=== PATIENT | female | born 1975 | race Hispanic/Latino ===

== ENCOUNTER 2018-10-02 00:47 | Emergency (ER) | payer MEDICAID, OTHER ==
[2018-10-02 01:36] LABS: APPEARANCE,URINE Cloudy (CLEAR); BILIRUBIN,URINE Negative (NEGATIVE); COLOR,URINE Yellow (YELLOW); GLUCOSE, URINE (UA) Negative (NEGATIVE); KETONES,URINE Negative (NEGATIVE); LEUKOCYTE ESTERASE ,URINE Negative (NEGATIVE); NITRATE,URINE Negative (NEGATIVE); OCCULT BLOOD,URINE Negative (NEGATIVE); PH,URINE 5.5 (5.0-8.0); PROTEIN,URINE Negative (NEGATIVE); UROBILINOGEN,URINE 0.2 mg/dL (0.2-1.0)
[2018-10-02] MEDS ORDERED: METOCLOPRAMIDE 10 MG/2 ML VIAL ONE (01:42)
[2018-10-02] MEDS ORDERED: FAMOTIDINE/PF 20 MG/2 ML VIAL IV ONE (01:42)
[2018-10-02] MEDS ORDERED: ONDANSETRON HCL 4 MG/2 ML VIAL ONE (01:42)
[2018-10-02] MEDS ORDERED: SODIUM CHLORIDE 0.9% 1000ML 1,000 ML IV ONE (01:43)
[2018-10-02 01:47] LABS: BASOPHILS % (AUTO) 1.7 % (0.0-5.0); EOSINOPHILS % (AUTO) 1.7 % (0.0-8.0); HEMATOCRIT 34.9 % (36-48); LYMPHOCYTES % (AUTO) 8.7 % (21.0-51.0); MEAN CORPUSCULAR HGB CONC 31.9 g/dL (32.0-36.0); MEAN CORPUSCULAR VOLUME 75.1 fL (79-99); MONOCYTES % (AUTO) 3.6 % (3.0-13.0); NEUTROPHILS % (AUTO) 84.3 % (40.0-77.0); PLATELET COUNT (AUTO) 178 K/uL (130-400); RED BLOOD CELL COUNT(AUTO) 4.65 MIL/uL (4.00-5.50); RED CELL DISTRIBUTION WIDTH 20.2 % (11.0-15.5); WHITE BLOOD COUNT (AUTO) 10.5 K/uL (4.8-10.8)
[2018-10-02 01:55] LABS: CREATININE 0.7 mg/dL (0.5-1.5); POTASSIUM 3.6 mmol/L (3.5-5.1)
[2018-10-02 01:57] LABS: INR 0.9 (0.85-1.15); PROTHROMBIN TIME 9.5 SEC (9.6-11.6)
[2018-10-02 01:59] LABS: ALBUMIN 3.5 g/dL (3.5-5.0); BILIRUBIN,TOTAL 0.3 mg/dL (0.2-1.0); TOTAL PROTEIN, SERUM 7.1 g/dL (6.0-8.3)
[2018-10-02] MEDS ORDERED: IOHEXOL-350 75 ML VIAL IV ONE (02:24)
== END 2018-10-02 05:13 | disposition home or self-care (01) ==
LOC: EDH 00:47
DX: R10.13 Epigastric pain (principal); R10.12 Left upper quadrant pain; Z79.899 Other long term (current) drug therapy; Z98.890 Other specified postprocedural states
CPT/HCPCS: 36415; 74177; 80053; 81003; 82550; 83605; 83690; 84484; 85025; 85610; 85730; 93005; 96374; 96375; 99285; J2405; J2765; J3490; J7030; Q9967

== ENCOUNTER → 2021-06-21 | Outpatient (CLI) | payer OTHER | END | disposition home or self-care (01) | LOC: SHCH 07:44 | PROVIDERS: ATTEND Internal Medicine Cardiovascular Disease | DX: I11.9 Hypertensive heart disease without heart failure (principal); I35.8 Other nonrheumatic aortic valve disorders; E11.9 Type 2 diabetes mellitus without complications | CPT/HCPCS: 93306 ==

== ENCOUNTER → 2021-11-05 | Outpatient (CLI) | payer OTHER | END | disposition home or self-care (01) | LOC: RAH 09:37 | PROVIDERS: ATTEND Family Medicine | DX: Z12.31 Encounter for screening mammogram for malignant neoplasm of breast (principal) | CPT/HCPCS: 77067 ==

== ENCOUNTER → 2022-12-18 | Outpatient (CLI) | payer OTHER | END | disposition home or self-care (01) | LOC: RAH 11:16 | PROVIDERS: ATTEND Family Medicine | DX: Z12.31 Encounter for screening mammogram for malignant neoplasm of breast (principal) | CPT/HCPCS: 77067 ==

== ENCOUNTER 2023-01-07 00:16 | Emergency (ER) | payer OTHER ==
[~2023-01-07] VITALS: Ht 157.5 cm; Wt 113.4 kg
[2023-01-07 01:04] LABS: BASOPHILS # (AUTO) 0.05 K/uL (0.00-0.20); BASOPHILS % (AUTO) 0.5 % (0.0-5.0); EOSINOPHILS # (AUTO) 0.29 K/uL (0.00-0.70); EOSINOPHILS % (AUTO) 3.1 % (0.0-8.0); HEMATOCRIT 26.5 % (36-48); IMMATURE GRANULOCYTE ABSOLUTE 0.15 K/uL (0-1); LYMPHOCYTES # (AUTO) 1.9 K/uL (1.0-4.8); LYMPHOCYTES % (AUTO) 20.4 % (21.0-51.0); MEAN CORPUSCULAR HEMOGLOBIN 20.1 pg (27.0-33.0); MEAN CORPUSCULAR HGB CONC 29.4 g/dL (32.0-36.0); MEAN CORPUSCULAR VOLUME 68.3 fL (79-99); MONOCYTES # (AUTO) 0.5 K/uL (0.1-1.0); MONOCYTES % (AUTO) 5.7 % (3.0-13.0); NEUTROPHILS # (AUTO) 6.5 K/uL (1.8-7.7); NEUTROPHILS % (AUTO) 68.7 % (40.0-77.0); PLATELET COUNT (AUTO) 243 K/uL (130-400); RED BLOOD CELL COUNT(AUTO) 3.88 MIL/uL (4.00-5.50); RED CELL DISTRIBUTION WIDTH 18.7 % (11.0-15.5); WHITE BLOOD COUNT (AUTO) 9.5 K/uL (4.8-10.8)
[2023-01-07 01:26] LABS: INR < 0.93 (0.85-1.15)
[2023-01-07 01:27] LABS: CREATININE 0.6 mg/dL (0.5-1.5); PARTIAL THROMBOPLASTIN TIME 24.7 SEC (26.3-35.5); POTASSIUM 4.5 mmol/L (3.5-5.1)
[2023-01-07 01:32] LABS: ALBUMIN 3.4 g/dL (3.5-5.0); BILIRUBIN,TOTAL 0.2 mg/dL (0.2-1.0); TOTAL PROTEIN, SERUM 7.1 g/dL (6.0-8.3)
[2023-01-07] MEDS ORDERED: 0.9%NACL 1000ML 2,000 ML IV ONE (02:00)
[2023-01-07] MEDS ORDERED: 0.9%NACL 1000ML 1,000 ML IV ONE (02:00)
[2023-01-07] MEDS ORDERED: IBUP-1493 PO (04:03)
[2023-01-07 04:05] VITALS: BP 126/73; PULSE 79; RESP 18; O2SAT 98
== END 2023-01-07 04:46 | disposition admitted as inpatient to this hospital (09) ==
LOC: EDH 00:16
DX: N92.0 Excessive and frequent menstruation with regular cycle (principal); D64.9 Anemia, unspecified; R42 Dizziness and giddiness; I10 Essential (primary) hypertension; Z86.018 Personal history of other benign neoplasm; Z90.49 Acquired absence of other specified parts of digestive tract
CPT/HCPCS: 99284; 96360; 76856; 80053; 85025; 85610; 85730; 86850; 86900; 86901; 36415; J7030

== ENCOUNTER → 2023-08-26 | Outpatient (CLI) | payer OTHER ==
[~2023-08-26] MED LIST: IBUP-1493 PO
[2023-08-26 12:28] LABS: CREATININE 0.8 mg/dL (0.5-1.0); POTASSIUM 4.4 mmol/L (3.5-5.1)
== END | disposition home or self-care (01) ==
LOC: LAB 09:04
PROVIDERS: ATTEND Internal Medicine Cardiovascular Disease
DX: R94.39 Abnormal result of other cardiovascular function study (principal)
CPT/HCPCS: 36415; 80048

== ENCOUNTER → 2023-10-09 | Outpatient (CLI) | payer OTHER ==
[2023-10-09 16:26] LABS: CREATININE 0.8 mg/dL (0.5-1.0); POTASSIUM 3.6 mmol/L (3.5-5.1)
== END | disposition home or self-care (01) ==
LOC: LAB 11:39
PROVIDERS: ATTEND Internal Medicine Cardiovascular Disease
DX: I10 Essential (primary) hypertension (principal)
CPT/HCPCS: 36415; 80048

== ENCOUNTER → 2024-02-27 | Outpatient (CLI) | payer OTHER ==
--- NOTE | 2024-02-27 12:49 | HMCIMG ---
SCREENING MAMMOGRAM WITH TOMOSYNTHESIS REASON: Annual exam. COMPARISON: 12/18/2022 TECHNIQUE: CC and MLO views of the bilateral breasts were performed. Tomosynthesis was performed in both projections.CAD was performed as well. FINDINGS: Parenchymal density:Parenchymal density: The breasts are heterogeneously dense, which may obscure small masses. There are no focal mass lesions. There are no pathologic appearing calcifications. There is no evidence of architectural distortion or skin thickening. IMPRESSION: Normal screening mammogram with tomosynthesis. The patient was entered into a reminder system with a target due date for their next mammogram. BI-RADS CATEGORY 1: NEGATIVE Recommend monthly self breast exam as well as annual clinical examination. A negative x-ray should not delay biopsy if a dominant or clinically suspicious mass is present, since 8-10% of cancers are not identified by mammography. Dense breasts particularly, may obscure an underlying neoplasm. Some of these may be detected clinically and therefore, clinical examination is an essential part of breast evaluation.
== END | disposition home or self-care (01) ==
LOC: RAH 11:21
PROVIDERS: ATTEND Student in an Organized Health Care Education/Training Program
DX: Z12.31 Encounter for screening mammogram for malignant neoplasm of breast (principal); R92.333 Mammographic heterogeneous density, bilateral breasts
CPT/HCPCS: 77063; 77067

== ENCOUNTER → 2024-03-26 | Outpatient (CLI) | payer OTHER ==
[2024-03-26 12:26] LABS: CREATININE 0.7 mg/dL (0.5-1.0); POTASSIUM 4.3 mmol/L (3.5-5.1)
== END | disposition home or self-care (01) ==
LOC: LAB 09:42
PROVIDERS: ATTEND Internal Medicine Cardiovascular Disease
DX: R94.39 Abnormal result of other cardiovascular function study (principal)
CPT/HCPCS: 36415; 80048

== ENCOUNTER 2024-07-17 14:04 | Emergency (ER) | payer OTHER ==
[~2024-07-17] VITALS: Ht 157.5 cm; Wt 115.7 kg
--- NOTE | 2024-07-17 14:24 | EKG ---
[facility] Test Date: 2024-07-17 Test Time: 14:20:59 Pat Name: DONALDO BRITO Department: ED Room: Gender: F [employer]: [id number] : 1975 Requested By: RUFINO MANZANO Order Number: [id number] Reading MD: Tyree Herman Measurements Intervals [place] Rate: 107 P: 35 NE: 139 QRS: 39 QRSD: 95 T: 41 QT: 330 QTc: 439 Interpretive Statements Sinus tachycardia Probable left atrial enlargement Nonspecific STT abnormality Low voltage, precordial leads Compared to ECG 10/02/2018 01:30:17 Low QRS voltage now present Sinus rhythm no longer present Electronically Signed On 07-18-2024 16:18:25 CDT by Tyree Herman Please click the below link to view image of tracing.
[2024-07-17 14:45] LABS: BASOPHILS # (AUTO) 0.03 K/uL (0.00-0.20); BASOPHILS % (AUTO) 0.4 % (0.0-5.0); EOSINOPHILS # (AUTO) 0.07 K/uL (0.00-0.70); HEMATOCRIT 33.9 % (36-48); IMMATURE GRANULOCYTE ABSOLUTE 0.09 K/uL (0-1); MEAN CORPUSCULAR HGB CONC 30.4 g/dL (32.0-36.0); MEAN CORPUSCULAR VOLUME 75.8 fL (79-99); MONOCYTES # (AUTO) 0.6 K/uL (0.1-1.0); MONOCYTES % (AUTO) 8.4 % (3.0-13.0); NEUTROPHILS # (AUTO) 5.2 K/uL (1.8-7.7); NEUTROPHILS % (AUTO) 74.9 % (40.0-77.0); PLATELET COUNT (AUTO) 193 K/uL (130-400); RED BLOOD CELL COUNT(AUTO) 4.47 MIL/uL (4.00-5.50)
[2024-07-17] MEDS: 0.9%NACL 1000ML 1,000 ML IV ONE (14:46)
[2024-07-17] MEDS: dexaMETHasone SOD PHOSPHATE 4 MG/ML 1ML VIAL IVP ONE (14:46)
[2024-07-17 14:55] LABS: CREATININE 0.7 mg/dL (0.5-1.0); POTASSIUM 3.9 mmol/L (3.5-5.1)
[2024-07-17 15:00] LABS: SARS-CoV-2, RNA, NAAT POSITIVE SARS CoV-2 (NEGATIVE)
[2024-07-17 15:07] LABS: INFLUENZA TYPE A Negative For Type A (NEGATIVE); INFLUENZA TYPE B Negative For Type B (NEGATIVE)
[2024-07-17 15:18] VITALS: BP 145/74; PULSE 96; RESP 18; TEMP 99.1; O2SAT 97
[2024-07-17] MEDS ORDERED: DEXA6TAB PO (15:18)
[2024-07-17] MEDS ORDERED: DOXY100C5 PO (15:18)
--- NOTE | 2024-07-17 15:18 | ERN ---
General Chief Complaint: Cough Stated Complaint: COUGH Time Seen by MD: 14:05 Source: patient History of Present Illness Initial Comments In his is a 49-year-old female coming in to be evaluated for cough. Patient states that she has been having cough for a couple of days. Patient was exposed to COVID by her . No fever or chills. Allergies: Coded Allergies: cephalexin (Unverified Allergy, Unknown, 07/17/24) Home Meds Active Scripts Ibuprofen (Motrin/Advil) 800 Mg Tab, 800 MG PO TID, #30 TAB Prov:BRICE BYRD MD 01/07/23 Past Medical History Past Medical History: Hypertension, Other Medical History Other: svt Past Surgical History: Hysterectomy, Other, Surgical History Other: rt wrist Family History Family History: CAD, HTN Social History Social History: Negative, Lives with family ROS Dictation CONSTITUTIONAL: No chills, no fever, no weakness, no diaphoresis, no malaise. HEAD/FACE: No signs of trauma. EENT: No eye pain, no blurred vision, no tearing, no double vision, no ear pain, no ear discharge, no nose pain, no nasal congestion, no throat pain, no throat swelling, no mouth pain. RESPIRATORY: cough, no orthopnea, no SOB, no stridor, no wheezing. CARDIOVASCULAR: No chest pain, no edema, no palpitations, no syncope. GASTROINTESTINAL/ABDOMINAL: No abdominal pain, no constipation, no diarrhea, no nausea, no vomiting. GENITOURINARY: No abnormal discharge, no dysuria, no frequent urination, no hematuria. No complaints of pain in the genitals. MUSCULOSKELETAL: No back pain, no gout, no joint pain, no joint swelling, no muscle pain, no muscle stiffness, no neck pain. INTEGUMENTARY: No change in color, no change in hair/nails, no dryness, no lesion, no lumps, no rash. NEUROLOGICAL/PSYCH: No anxiety, not depressed, no emotional problem, no headache, no numbness, no pre-existing deficit, no history of seizures, no tremors, no weakness. HEMATOLOGIC/LYMPHATIC: Not anemic, no history of blood clots, no apparent bleeding, no bruising, glands not swollen. All Systems Negative, Except as Noted. Physical Exam Physical Exam Dictation VITAL SIGNS: Reviewed. GENERAL APPEARANCE: Alert, oriented x3, no acute distress, obese. HEAD AND FACE: Non-traumatic. EYES: PERRL, pink conjunctivas, eyelid no trauma, anterior chamber clear. EARS: Pinnas intact and no signs of trauma or erythema. Ear canals clear and no discharge. TMs no erythema. NOSE: No discharge, no bleeding. OROPHARYNX: Mouth normal, teeth no caries, tongue pink. Pharynx clear, no erythema. Tonsils no exudates, no abscesses noted. Mucous membrane moist. NECK: Supple, non-tender, no thyromegaly, no masses, no JVD, no bruits. BREAST: Deferred. CHEST: No tenderness, no crepitus, no paradoxical movement, no retractions. LUNGS: Clear, well-ventilated, symmetric, no rales, no wheezing, no rhonchi, no stridor, good breath sounds bilaterally. HEART: Regular rate, regular rhythm, no murmur, no gallops. VASCULAR: No peripheral edema. ABDOMEN: Soft, positive bowel sounds, nondistended, no guarding, nontender, no rebound, no masses no hepatomegaly, no splenomegaly, no Browning's sign, no hernias. RECTAL: Deferred. GENITAL: Deferred. NEUROLOGICAL: Normal speech, gross motor function intact, gross sensory function intact. MUSCULOSKELETAL: Neck nontender, full range of motion, back nontender, full range of motion. EXTREMITIES: Nontender, full range of motion. SKIN: Color pink, dry, no turgor, no rash, no lacerations, no abrasions, no contusions. LYMPHATICS: Deferred. Results Laboratory and Microbiology Lab and Micro Result Laboratory Tests Test 07/17/24 14:32 07/17/24 14:35 White Blood Count 7.0 K/uL (4.8-10.8) Red Blood Count 4.47 MIL/uL (4.00-5.50) Hemoglobin 10.3 g/dL (12.0-16.0) L Hematocrit 33.9 % (36-48) L Mean Corpuscular Volume 75.8 fL (79-99) L Mean Corpuscular Hemoglobin 23.0 pg (27.0-33.0) L Mean Corpuscular Hemoglobin Concent 30.4 g/dL (32.0-36.0) L Red Cell Distribution Width 18.0 % (11.0-15.5) H Platelet Count 193 K/uL (130-400) Mean Platelet Volume 11.2 fL (7.5-10.5) H Immature Granulocyte % (Auto) 1.3 % (0-1) H Neutrophils (%) (Auto) 74.9 % (40.0-77.0) Lymphocytes (%) (Auto) 14.0 % (21.0-51.0) L Monocytes (%) (Auto) 8.4 % (3.0-13.0) Eosinophils (%) (Auto) 1.0 % (0.0-8.0) Basophils (%) (Auto) 0.4 % (0.0-5.0) Neutrophils # (Auto) 5.2 K/uL (1.8-7.7) Lymphocytes # (Auto) 1.0 K/uL (1.0-4.8) Monocytes # (Auto) 0.6 K/uL (0.1-1.0) Eosinophils # (Auto) 0.07 K/uL (0.00-0.70) Basophils # (Auto) 0.03 K/uL (0.00-0.20) Absolute Immature Granulocyte (auto 0.09 K/uL (0-1) Nucleated Red Blood Cells 0.0 % (0.0-0.19) Red Blood Cell Morphology See comments Sodium Level 140 mmol/L (136-145) Potassium Level 3.9 mmol/L (3.5-5.1) Chloride Level 103 mmol/L (101-111) Carbon Dioxide Level 29 mmol/L (21-32) Blood Urea Nitrogen 6 mg/dL (7-18) L Creatinine 0.7 mg/dL (0.5-1.0) Glomerular Filtration Rate Calc 106 mL/min (>90) Random Glucose 106 mg/dL (70-105) H Total Calcium 9.0 mg/dL (8.5-10.1) Troponin I High Sensitivity < 4 ng/L (4-50) L Influenza Type A Antigen Negative For Type A Influenza Type B Antigen Negative For Type B SARS-CoV-2, RNA, NAAT POSITIVE SARS CoV-2 Labs Reviewed?: Yes EKG/XRAY/US/CT/MRI EKG Comment 07/17/2024 time 2:20 p.m. Ventricular rate 107 Sinus tachycardia [place] [address] wave elevation or depression X-RAY Comment X-ray NAD MDM MDM: Differential diagnosis: COVID, URI, Rationale: Tests considered and ordered secondary to shared decision making include: Previous outside records reviewed: Old ER visits. Risk of complication and/or morbidity or mortality of patient management: None Medications-Per medication reconciliation Patient is a 49-year-old female coming in to be evaluated for Estrace . Physical exam did not disclose acute findings on lung auscultation x-ray did not disclose acute findings. Patient is a 49-year-old appropriate was hydrated with IV fluids given IV steroids aswell eros be discharged in stable condition with a diagnosis of COVID ED Course Orders Procedure Category Date Status Time Cbc With Differential LAB 07/17/24 Complete 14:07 Basic Metabolic Panel LAB 07/17/24 Complete 14:07 12 Lead Ekg Tracing- EKG 07/17/24 Complete Technical 14:07 Troponin I High LAB 07/17/24 Complete Sensitivity 14:07 Dexamethasone 4mg/Ml PHA 07/17/24 Complete 1ml Vial (Dexametha 14:30 Chest 1vw RAD 07/17/24 Taken 14:07 0.9%Nacl 1000ml (Ns PHA 07/17/24 Complete 1000ml) 14:30 Covid Rna Naat LAB 07/17/24 Complete 14:07 Influenza Type A & B, LAB 07/17/24 Complete Rapid 14:07 Current Medications Medications (Trade) Dose Ordered Sig/Dagoberto Route PRN Reason Start Time Stop Time Status Last Admin Dose Admin Dexamethasone Sodium Phosphate (dexaMETHasone 4MG/ML 1ML VIAL) 6 mg ONCE ONCE IVP 07/17/24 14:30 07/17/24 14:31 DC 07/17/24 14:46 Sodium Chloride 1,000 ml @ 0 mls/hr ONCE ONCE IV 07/17/24 14:30 07/17/24 14:31 DC 07/17/24 14:46 Vital Signs Date Time Temp Pulse Resp B/P (MAP) Pulse Ox O2 Delivery O2 Flow Rate FiO2 07/17/24 14:09 99.1 118 22 143/82 Room Air 0 07/17/24 14:07 99.1 118 22 143/82 97 Room Air* 0 21 DX & DISP Disposition: Discharge Departure Impression: Primary Impression: COVID-19 Additional Impression: Dehydration Condition: Stable Scripts Doxycycline Hyclate (Doxycycline Hyclate) 100 Mg Capsule 1 CAP PO BID for 10 Days, #20 CAP 0 Refills Prov: RUFINO MANZANO MD 07/17/24 Dexamethasone (Dexamethasone) 6 Mg Tablet 1 TAB PO ONCE for 7 Days, #7 TAB 0 Refills Prov: RUFINO MANZANO MD 07/17/24 Additional Instructions: FOLLOW-UP WITH PRIMARY CARE PROVIDER IN 1 TO 2 DAYS. TAKE MEDICATIONS DIRECTED HERE IN THE EMERGENCY ROOM. OKAY TO CONTINUE HOME MEDICATIONS UNLESS OTHERWISE DISCUSSED DURING YOUR VISIT IN THE EMERGENCY ROOM TODAY. RETURN TO YOUR NEAREST EMERGENCY ROOM IF SYMPTOMS WORSEN OR IF THERE IS NO IMPROVEMENT. CALL 911 IF YOU NEED IMMEDIATE ASSISTANCE. TAKE TYLENOL [id number] NEEDED AND IF NO CONTRAINDICATIONS ARE PRESENT. INCREASE ORAL HYDRATION. A WOUND CULTURE OR URINE CULTURE WAS ORDERED HERE IN THE EMERGENCY ROOM DEPARTMENT PLEASE FOLLOW-UP WITH PRIMARY CARE PROVIDER AND ADVISE THEM TO GET REPORTS FROM OUR FACILITY. IF YOU HAD ANY SARY WRAP/SPLINTS THAT WERE APPLIED HERE, PLEASE DO NOT REMOVE THEM UNTIL YOU SEE YOUR PRIMARY CARE OR SPECIALTY. Referrals: Referrals: LESLI ROSS MD (PCP) Time of Disposition: 15:16 RUFINO MANZANO MD Jul 17, 2024 15:18
--- NOTE | 2024-07-17 15:23 | HMCIMG ---
INDICATION: cough TECHNIQUE: CHEST 1VW COMPARISON: None FINDINGS AND IMPRESSION: Prominent bilateral interstitial markings which may represent bronchitis or vascular congestion in the proper clinical setting. Cardiac silhouette is within normal limits. Mild degenerative changes of the spine. The visualized upper abdomen appears unremarkable.
--- NOTE | 2024-07-17 15:34 | NUR ---
PT AAOX4 , STABLE NO DISTRESS VITALS WNL NO C/O PAIN NOW PT IV REMOVED CATHETER INTACT. PT GIVEN INSTRUCTION FOR HOME, PT DRIVEN HOME BY FAMILY.
== END 2024-07-17 16:02 | disposition home or self-care (01) ==
LOC: EDH 14:04
DX: U07.1 COVID-19 (principal); E86.0 Dehydration; I10 Essential (primary) hypertension; Z79.1 Long term (current) use of non-steroidal anti-inflammatories (NSAID); Z88.1 Allergy status to other antibiotic agents; Z90.710 Acquired absence of both cervix and uterus
CPT/HCPCS: 99285; 96374; 71045; 87635; 96361; 84484; 80048; 85025; 87804 ×2; 36415; 93005; J1100; J7030